=== PATIENT | female | born 2000 | race Caucasian/White ===

== ENCOUNTER 2021-10-15 09:13 | Outpatient (CLI) | payer BC, SELFPAY ==
[2021-10-15 17:35] LABS: Iron 38 ug/dL (37-170)
[2021-10-15 17:45] LABS: Percent Iron Saturation 8 % (20-50)
[2021-10-15 17:54] LABS: Free T4 Free Thyroxine 1.41 ng/mL (0.78-2.19)
[2021-10-15 18:10] LABS: Total Triiodothyronine (T3) 1.62 NG/ML (0.97-1.69)
[2021-10-15 18:12] LABS: Ferritin 6.26 ng/mL (6.24-137)
[2021-10-19 08:37] LABS: Triiodothyronine T3 Free 3.8 pg/mL (2.3-4.2)
== END 2021-10-15 09:14 | disposition home or self-care (01) ==
LOC: ANHWCLAB 09:16
PROVIDERS: PCP Internal Medicine; Visit Provider Internal Medicine Endocrinology, Diabetes & Metabolism
DX: R76.9 Abnormal immunological finding in serum, unspecified (principal); R89.9 Unspecified abnormal finding in specimens from other organs, systems and tissues; E04.9 Nontoxic goiter, unspecified; E61.1 Iron deficiency; E06.3 Autoimmune thyroiditis
CPT/HCPCS: 36415; 82728; 83540; 83550; 84439; 84443; 84480; 84481